=== PATIENT | female | born 2000 | race Caucasian/White ===

== ENCOUNTER 2022-10-19 11:21 | Outpatient (CLI) | payer MEDICAID | END 2022-10-19 23:59 | disposition home or self-care (01) | LOC: LAB 11:21 | PROVIDERS: ATTEND Surgery | DX: N61.0 Mastitis without abscess (principal) | CPT/HCPCS: 87070 ==

== ENCOUNTER 2022-12-28 12:28 | Outpatient (CLI) | payer MEDICAID | END 2022-12-28 23:59 | disposition home or self-care (01) | LOC: LAB SPEC 12:28 | PROVIDERS: ATTEND Surgery | DX: N61.0 Mastitis without abscess (principal) | CPT/HCPCS: 87070; 87077; 87186 ==